=== PATIENT | female | born 1980 | race Caucasian/White ===

== ENCOUNTER 2020-06-17 22:20 | Outpatient (RCR) | payer BC, SELFPAY ==
[2020-06-17] MEDS: COVID-19 VACC, MRNA(PFIZER)/PF 30 MCG/0.3 ML SYRINGE IM (15:35)
[2020-07-08] MEDS: COVID-19 VACC, MRNA(PFIZER)/PF 30 MCG/0.3 ML SYRINGE IM (14:55)
== END 2020-06-17 23:59 ==
LOC: IMMUN 22:20
PROVIDERS: PCP Family Medicine; Visit Provider Family Medicine
DX: Z23 Encounter for immunization (principal)
CPT/HCPCS: 0001A; 0002A; 91300